=== PATIENT | female | born 1970 | race Caucasian/White ===

== ENCOUNTER 2016-05-23 12:57 | Inpatient (IN) | payer OTHER, MEDICAID, MEDICARE ==
[~2016-05-23] VITALS: Ht 149.9 cm; Wt 81.6 kg
[~2016-05-23 12:57] MED LIST: BACL10TA PO; ESTR1TAB12 PO; FLUC100T41 PO; FLUO-1 PO; OXCA300T2 PO; PROT40TA PO; SERO100T PO; SPIRCAP INH; SUCR1TAB PO; SYNT88TA PO; TIZA2TAB PO; TOPA200T4 PO
[2016-05-23 13:00] VITALS: BP 115/57; PULSE 99; RESP 15; TEMP 98.2; O2SAT 98
--- NOTE | 2016-05-23 13:51 | PD ---
HPI Chief Complaint: GI Complaint Time Seen by Provider: 13:25 Travel History International Travel<30 days: No Contact w/Intl Traveler<30days: No Traveled to known affect area: No History of Present Illness HPI 46-year-old female came to the emergency room with history of vomiting and diarrhea for past 3 days. Patient says that she vomited numerous times today and has lost count. She says when she is vomiting she is having diarrhea simultaneously. She has history of diabetes. As been unable to keep anything down. She also has abdominal pain in the epigastric area and thinks if her pancreatitis could be followed up. She has been feeling tired and weak. PFSH Past Medical History Narrative Medical List of her past medical, social and family history was reviewed from the nursing note. Arthritis: Yes (in knees bilateral & bilateral wrists) Asthma: Yes Anxiety: No (currently on meds) Depression: Yes (currently on meds) Cancer: No Cardiovascular Problems: Yes Diabetes: Yes Patient Takes Glucophage: No Diminished Hearing: No Gastrointestinal Disorders: Yes GERD: Yes Genitourinary: No Hiatal Hernia: No Implanted Vascular Access Dvce: Yes Musculoskeletal: Yes Neurologic: Yes Reproductive: No Respiratory: Yes (ASTHMA ) Migraines: Yes (sometimes) Pancreatitis: Yes Seizures: No Thyroid Disease: Yes Ulcer: Yes Influenza Vaccination: No ?: Not Past Surgical History Appendectomy: Yes Body Medical Devices: stimulator in lower back Cholecystectomy: Yes Hysterectomy: Yes Neurologic Surgery: Yes (neurostimulator implanted) Social History Alcohol Use: No Tobacco Use: No Substance Use: No Allergies-Medications (Allergen,Severity, Reaction): Coded Allergies: Sulfa (Verified Allergy, Severe, TONGUE SWELLING, 05/23/16) Comments List of her allergies reviewed from the nursing note. Reported Meds & Prescriptions Reported Meds & Active Scripts Active Reported Topamax (Topiramate) 200 Mg Tab 200 Mg PO BID Tramadol (Tramadol HCl) 50 Mg Tab 50 Mg PO TID PRN Metoclopramide (Metoclopramide HCl) 5 Mg Tab 5 Mg PO TIDAC Tizanidine (Tizanidine HCl) 4 Mg Cap 4 Mg PO DAILY PRN Seroquel (Quetiapine Fumarate) 100 Mg Tab 100 Mg PO HS Fluoxetine (Fluoxetine HCl) 40 Mg Cap 60 Cap PO DAILY Take 1 capsule (40mg) with 20mg capsule for a total dose of 60mg Fluoxetine (Fluoxetine HCl) 20 Mg Cap 60 Mg PO DAILY Take 1 capsule (20mg) with 40mg capsule for a total dose of 60mg Atorvastatin (Atorvastatin Calcium) 10 Mg Tab 10 Mg PO DAILY Lisinopril 10 Mg Tab 10 Mg PO DAILY [place] Carbonate 300 Mg Cap 300 Mg PO BID Fluticasone Nasal [place] 50 Mcg/Act Naspr 2 [place] EACH NARE DAILY Levothyroxine (Levothyroxine Sodium) 100 Mcg Tab 100 Mcg PO DAILY Oxybutynin ER 24 HR (Oxybutynin Chloride) 5 Mg Tab 5 Mg PO DAILY Narrative Medication List of her home medications reviewed from the nursing note. Review of Systems Except as stated in HPI: all other systems reviewed are Neg Physical Exam Narrative GENERAL: Awake, alert, obese, moderate distress SKIN: Warm and dry. HEAD: Atraumatic. Normocephalic. EYES: Pupils equal and round. No scleral icterus. No injection or drainage. ENT: No nasal bleeding or discharge. Dry mucous membrane. NECK: Trachea midline. No JVD. CARDIOVASCULAR: Regular rate and rhythm. No murmur appreciated. RESPIRATORY: No accessory muscle use. Clear to auscultation. Breath sounds equal bilaterally. GASTROINTESTINAL: Tender in the epigastric region, nondistended. Hepatic and splenic margins not palpable. MUSCULOSKELETAL: No obvious deformities. No clubbing. No cyanosis. No edema. NEUROLOGICAL: Awake and alert. No obvious cranial nerve deficits. Motor grossly within normal limits. Normal speech. PSYCHIATRIC: Appropriate mood and affect; insight and judgment normal. Data Data Last Documented VS Vital Signs Date Time Temp Pulse Resp B/P Pulse Ox O2 Delivery O2 Flow Rate FiO2 05/23/16 14:17 99 Room Air 05/23/16 13:00 98.2 99 15 115/57 Orders Complete Blood Count With Diff (05/23/16 13:58) Comprehensive Metabolic Panel (05/23/16 13:58) Lipase (05/23/16 13:58) Iv Access Insert/Monitor (05/23/16 13:58) Ecg Monitoring (05/23/16 13:58) Oximetry (05/23/16 13:58) Ondansetron Inj (Zofran Inj) (05/23/16 14:00) Sodium Chlor 0.9% 1000 Ml Inj (Ns 1000 M (05/23/16 13:58) Sodium Chloride 0.9% Flush (Ns Flush) (05/23/16 14:00) C Diff Toxin Pcr (05/23/16 14:08) Sodium Chlor 0.9% 1000 Ml Inj (Ns 1000 M (05/23/16 15:15) Sodium Chlor 0.9% 1000 Ml Inj (Ns 1000 M (05/23/16 15:15) Admit Order (Ed Use Only) (05/23/16 15:19) Labs Laboratory Tests Test 05/23/16 14:28 White Blood Count 15.9 TH/MM3 Red Blood Count 5.43 MIL/MM3 Hemoglobin 13.6 GM/DL Hematocrit 43.0 % Mean Corpuscular Volume 79.2 FL Mean Corpuscular Hemoglobin 25.0 PG Mean Corpuscular Hemoglobin 31.6 % Concent Red Cell Distribution Width 17.7 % Platelet Count 377 TH/MM3 Mean Platelet Volume 8.3 FL Neutrophils (%) (Auto) 84.3 % Lymphocytes (%) (Auto) 9.7 % Monocytes (%) (Auto) 4.5 % Eosinophils (%) (Auto) 1.3 % Basophils (%) (Auto) 0.2 % Neutrophils # (Auto) 13.4 TH/MM3 Lymphocytes # (Auto) 1.6 TH/MM3 Monocytes # (Auto) 0.7 TH/MM3 Eosinophils # (Auto) 0.2 TH/MM3 Basophils # (Auto) 0.0 TH/MM3 CBC Comment DIFF FINAL Differential Comment Sodium Level 133 MEQ/L Potassium Level 4.8 MEQ/L Chloride Level 103 MEQ/L Carbon Dioxide Level 18.2 MEQ/L Anion Gap 12 MEQ/L Blood Urea Nitrogen 25 MG/DL Creatinine 3.19 MG/DL Estimat Glomerular Filtration 16 ML/MIN Rate Random Glucose 109 MG/DL Calcium Level 9.5 MG/DL Total Bilirubin 0.5 MG/DL Aspartate Amino Transf 29 U/L (AST/SGOT) Alanine Aminotransferase 31 U/L (ALT/SGPT) Alkaline Phosphatase 113 U/L Total Protein 8.7 GM/DL Albumin 4.6 GM/DL Lipase 325 U/L Free Thyroxine 1.19 NG/DL Thyroid Stimulating Hormone 5.060 uIU/ML 3rd Gen [facility] Medical Decision Making Medical Screen Exam Complete: Yes Emergency Medical Condition: Yes Medical Record Reviewed: Yes Differential Diagnosis Acute gastroenteritis, C. difficile colitis, acute pancreatitis Narrative Course 2:08 PM awaiting for the blood test results to come back. Patient is getting IV fluid bolus and Zofran. 3:06 PM the test results are back and patient is in acute renal failure. Upon trending the lab test results from the past patient has been in normal renal function in the past. I've ordered a second liter of IV fluid bolus. Awaiting for the hospitalist to call back for admission. Critical Care Narrative Aggregate critical care time was 30 minutes. Time to perform other separately billable procedures was not included in the critical care time. My time did not include minutes spent treating any other patients simultaneously or on activities that did not directly contribute to the patient's treatment. The services I provided to this patient were to treat and/or prevent clinically significant deterioration that could result in: Acute renal failure, severe dehydration, fluid resuscitation I provided critical care services requiring my management, as noted below: Chart data review, documentation time, medication orders and management, vital sign assessments/reviewing monitor data, ordering and reviewing lab tests, ordering and interpreting/reviewing x-rays and diagnostic studies, care of the patient and discussion of the patient with the admitting physicians. Procedures EKG Prior to Arrival: No Diagnosis Primary Impression: Acute renal failure Qualified Code: N17.9 - Acute renal failure, unspecified acute renal failure type Additional Impressions: Dehydration Acute gastroenteritis Admitting Information Admitting Physician Requests: Tereza Ferro MD May 23, 2016 13:51
[2016-05-23] MEDS ORDERED: SODIUM CHLOR 0.9% 1000 ML INJ 1,000 ML IV SCH (13:58)
[2016-05-23] MEDS ORDERED: ONDANSETRON HCL 4 MG/2 ML VIAL IVP ONE (14:00)
[2016-05-23] MEDS ORDERED: SODIUM CHLORIDE 0.9% FLUSH 5 ML FLUSH IVF PRN (14:00)
[2016-05-23 14:17] VITALS: O2SAT 99
[2016-05-23] MEDS ORDERED: TRAM50TA PO (14:39)
[2016-05-23] MEDS ORDERED: METO5TAB PO (14:39)
[2016-05-23] MEDS ORDERED: EMPA1TAB13 PO (14:39)
[2016-05-23] MEDS ORDERED: SERO100T PO (14:39)
[2016-05-23] MEDS ORDERED: TOPI200 PO (14:39)
[2016-05-23] MEDS ORDERED: FLUO40CA PO (14:39)
[2016-05-23] MEDS ORDERED: LEVO100T5 PO (14:39)
[2016-05-23] MEDS ORDERED: ATOR10TA15 PO (14:39)
[2016-05-23] MEDS ORDERED: LISI10TA3 PO (14:39)
[2016-05-23] MEDS ORDERED: OXYB5TAB PO (14:39)
[2016-05-23] MEDS ORDERED: FLUO20CA4 PO (14:39)
[2016-05-23] MEDS ORDERED: FLUT50SP EACH NARE (14:39)
[2016-05-23] MEDS ORDERED: TIZA4CAP3 PO (14:39)
[2016-05-23] MEDS ORDERED: LITH300C2 PO (14:39)
[2016-05-23 14:41] LABS: AUTOMATED NEUTROPHIL # 13.4 TH/MM3 (1.8-7.7); BASOPHIL % 0.2 % (0.0-2.0); EOSINOPHIL # 0.2 TH/MM3 (0-0.4); EOSINOPHIL % 1.3 % (0.0-4.0); HEMO FLAGS DIFF FINAL; LYMPH % 9.7 % (9.0-44.0); LYMPHOCYTE # 1.6 TH/MM3 (1.0-4.8); MEAN CELL VOLUME 79.2 FL (80.0-100.0); MEAN CORPUSCULAR HGB CONC 31.6 % (32.0-36.0); MONO % 4.5 % (0.0-8.0); NEUT % 84.3 % (16.0-70.0); PLATELET COUNT 377 TH/MM3 (150-450); RED BLOOD COUNT 5.43 MIL/MM3 (4.00-5.30); RED CELL DISTRIBUTION WIDTH 17.7 % (11.6-17.2); WHITE BLOOD COUNT 15.9 TH/MM3 (4.0-11.0)
[2016-05-23 14:59] LABS: ALKALINE PHOSPHATASE 113 U/L (45-117); TOTAL BILIRUBIN ADULT 0.5 MG/DL (0.2-1.0)
[2016-05-23 15:03] LABS: ALT (GPT) 31 U/L (10-53); ANION GAP 12 MEQ/L (5-15); AST (GOT) 29 U/L (15-37); BICARBONATE 18.2 MEQ/L (21.0-32.0); BLOOD UREA NITROGEN 25 MG/DL (7-18); CHLORIDE 103 MEQ/L (98-107); GLOMERULAR FILTRATION RATE 16 ML/MIN (>89); POTASSIUM 4.8 MEQ/L (3.5-5.1); SODIUM (NA) 133 MEQ/L (136-145)
[2016-05-23] MEDS ORDERED: SODIUM CHLOR 0.9% 1000 ML INJ 1,000 ML IV ONE ×2 (15:15)
[2016-05-23] MEDS ORDERED: SODIUM CHLORIDE 0.9% FLUSH 5 ML FLUSH IV PRN (15:30)
[2016-05-23] MEDS ORDERED: ONDANSETRON HCL 4 MG/2 ML VIAL IV PRN (15:30)
[2016-05-23] MEDS ORDERED: DEXTROSE 50% IN WATER 50 ML VIAL(D50) IV PUSH PRN (15:45)
[2016-05-23] MEDS ORDERED: GLUCAGON 1 MG/ML VIAL OTHER PRN (15:45)
[2016-05-23] MEDS ORDERED: PILL SPLITTER OTHER PRN (15:45)
[2016-05-23] MEDS: INSULIN ASPART SUPPLEMENTAL SCALE SQ SCH ×2 (16:00→21:00)
[2016-05-23] MEDS: NS + KCL 20 MEQ INJ 1,000 ML IV SCH ×2 (16:16→22:15)
[2016-05-23] MEDS: HEPARIN SODIUM - SQ 10,000 UNITS/ML VIAL SQ SCH (16:16)
[2016-05-23 16:22] VITALS: BP 112/61; PULSE 88; RESP 16; O2SAT 99
[2016-05-23 17:12] LABS: BACTERIA, URINE OCC /hpf; BLOOD, URINE NEG (NEG); COMMENT (UR) CULT NOT INDICATED; CULTURE IF INDICATED CULT NOT INDICATED; GLUCOSE,URINE 300 mg/dL (NEG); KETONE, URINE NEG (NEG); MUCUS URINE FEW /lpf (OCC); NITRITE,URINE NEG (NEG); PH, URINE 5.5 (5.0-8.5); SQUAMOUS EPITHELIAL CELL URINE <1 /hpf (0-5); URINE COLOR COLORLESS (YELLW/STRAW)
[2016-05-23] MEDS: METOCLOPRAMIDE HCL 10 MG TAB PO SCH (17:12)
[2016-05-23 18:48] VITALS: BP 134/73; PULSE 88; RESP 18; O2SAT 99
[2016-05-23 19:16] VITALS: BP 117/66; PULSE 83; RESP 16; O2SAT 100
[2016-05-23 20:00] VITALS: BP 129/71; PULSE 82; RESP 16; TEMP 98.7; O2SAT 97
[2016-05-23] MEDS ORDERED: QUEtiapine FUMARATE 100 MG TAB PO SCH (21:00)
[2016-05-23] MEDS ORDERED: SODIUM CHLORIDE 0.9% FLUSH 5 ML FLUSH IV SCH (21:00)
--- NOTE | 2016-05-23 21:15 | HHI.HP ---
HPI Service [facility] Primary Care Physician Olivier Grimaldo, Admission Diagnosis acute renal failure, dehydration, metabolic acidosis Diagnoses: Chief Complaint: Vomiting with diarrhea Travel History International Travel<30 Days: No Contact w/Intl Traveler <30 Da: No Traveled to Known Affected Are: No History of Present Illness This 46-year-old female patient with past medical history which includes anxiety /depression, bipolar, diabetes mellitus, anxiety/depression, bipolar, GERD, asthma, pancreatitis and hypothyroidism. Patient reports over the past 2 months she has lost approximally 30 pounds. Patient believes this is due to the stress of moving as well as her is currently on a heart transplant waiting list and has an LVAD. Patient's is also currently being treated with IV antibiotics for MRSA infections. Patient reports for the past 2 weeks she has been feeling generally unwell with decreased appetite. Patient reports the past 3 days she has had vomiting as well as diarrhea. Patient reports that she has been having liquid bowel movements while she is vomiting. Patient reports she is vomiting continuously throughout the day more than 5 times per day. Patient denies coffee-ground emesis or bright red blood in emesis. Patient also denies black tarry stools or bright red blood per rectum. Patient reports the stool does have a stronger odor than it typically does. Patient denies abdominal pain but reports mild upper abdominal discomfort. Patient denies fevers chills shortness of breath or chest pain. Patient does report right lower extremity cramping for the past 1-2 days. Patient describes a cramping as intermittent in nature involving both upper and lower aspects of the leg not specifically the calf. There is no unilateral edema erythema or warmth on evaluation. Patient reports the leg cramping has resolved since receiving the IV fluids. Review of Systems Except as stated in HPI: all other systems reviewed are Neg Past Family Social History Past Medical History Anxiety/depression, bipolar, diabetes mellitus, anxiety/depression, bipolar, GERD, asthma, pancreatitis and hypothyroidism Past Surgical History Cholecystectomy, appendectomy, hysterectomy, right shoulder repair and nerve stimulator for back pain Reported Medications Topamax (Topiramate) 200 Mg Tab 200 Mg PO BID Tramadol (Tramadol HCl) 50 Mg Tab 50 Mg PO TID PRN Metoclopramide (Metoclopramide HCl) 5 Mg Tab 5 Mg PO TIDAC Tizanidine (Tizanidine HCl) 4 Mg Cap 4 Mg PO DAILY PRN Seroquel (Quetiapine Fumarate) 100 Mg Tab 100 Mg PO HS Fluoxetine (Fluoxetine HCl) 40 Mg Cap 60 Cap PO DAILY Take 1 capsule (40mg) with 20mg capsule for a total dose of 60mg Fluoxetine (Fluoxetine HCl) 20 Mg Cap 60 Mg PO DAILY Take 1 capsule (20mg) with 40mg capsule for a total dose of 60mg Atorvastatin (Atorvastatin Calcium) 10 Mg Tab 10 Mg PO DAILY Lisinopril 10 Mg Tab 10 Mg PO DAILY Synjardy (Empagliflozin-Metformin) 12.5 -1,000 Mg Tab 1 Tab PO BIDPC [place] Carbonate 300 Mg Cap 300 Mg PO BID Fluticasone Nasal [place] 50 Mcg/Act Naspr 2 [place] EACH NARE DAILY Levothyroxine (Levothyroxine Sodium) 100 Mcg Tab 100 Mcg PO DAILY Oxybutynin ER 24 HR (Oxybutynin Chloride) 5 Mg Tab 5 Mg PO DAILY Allergies: Coded Allergies: Sulfa (Verified Allergy, Severe, TONGUE SWELLING, 05/23/16) Active Ordered Medications Current Medications Medications (Trade) Dose Ordered Sig/Hanna Route Start Time Stop Time Status Last Admin (NS Flush) 2 ml UNSCH PRN IVF 05/23/16 14:00 (Lipitor) 10 mg DAILY PO 05/24/16 09:00 (PROzac) 60 mg DAILY PO 05/24/16 09:00 (Flonase David Spr) 2 spray DAILY EACH NARE 05/24/16 09:00 (Synthroid) 100 mcg DAILY@06 PO 05/24/16 06:00 (Prinivil) 10 mg DAILY PO 05/24/16 09:00 ([place] Carbonate) 300 mg BID PO 05/23/16 21:00 05/23/16 22:15 (Reglan) 5 mg TIDAC PO 05/23/16 17:00 05/23/16 17:12 (SEROquel) 100 mg HS PO 05/23/16 21:00 05/23/16 21:25 (Topamax) 200 mg BID PO 05/23/16 21:00 05/23/16 22:14 Tolterodine Tartrate 2 mg 2 mg DAILY PO 05/24/16 09:00 (NS + KCl 20 Meq Inj) 1,000 ml @ 125 mls/hr Q8H IV 05/23/16 15:30 05/23/16 22:15 (Zofran Inj) 4 mg Q6H PRN IV 05/23/16 15:30 (Heparin Inj) 5,000 units Q12H SQ 05/23/16 16:00 05/23/16 16:16 (D50w (Vial) Inj) 25 ml UNSCH PRN IV PUSH 05/23/16 15:45 (Glucagon Inj) 1 mg UNSCH PRN OTHER 05/23/16 15:45 (Pill Splitter) 1 ea UNSCH PRN OTHER 05/23/16 15:45 (Flu (Quadrivalent) Vaccine Inj) 0.5 ml ONCE ONCE IM 05/24/16 10:00 05/24/16 10:01 Family History Diabetes mellitus, heart disease, ovarian cancer and breast cancer Social History Patient lives at home with her Denies EtOH use or illicit drug use Quit tobacco use in 2012 Physical Exam Vital Signs Vital Signs Date Time Temp Pulse Resp B/P Pulse Ox O2 Delivery O2 Flow Rate FiO2 05/23/16 19:16 83 16 117/66 100 Room Air 05/23/16 18:48 88 18 134/73 99 05/23/16 16:22 88 16 112/61 99 Room Air 05/23/16 14:17 99 Room Air 05/23/16 13:00 98.2 99 15 115/57 98 Physical Exam GENERAL: This is a well-nourished, well-developed patient, in no apparent distress. SKIN: No rashes, ecchymoses or lesions. Cool and dry. HEAD: Atraumatic. Normocephalic. No temporal or scalp tenderness. EYES: Extraocular motions intact. No scleral icterus. No injection or drainage. CARDIOVASCULAR: Regular rate and rhythm without murmurs, gallops, or rubs. RESPIRATORY: Clear to auscultation. Breath sounds equal bilaterally. No wheezes , rales, or rhonchi. GASTROINTESTINAL: Abdomen soft, non-tender, nondistended. No guarding. MUSCULOSKELETAL: Extremities without clubbing, cyanosis, or edema. No joint tenderness, effusion, or edema noted. No calf tenderness. Negative Homans sign bilaterally. NEUROLOGICAL: Awake and alert. No focal deficits identified. Motor and sensory grossly within normal limits. Five out of 5 muscle strength in all muscle groups. Normal speech. Laboratory Laboratory Tests Test 05/23/16 05/23/16 14:28 16:36 White Blood Count 15.9 Red Blood Count 5.43 Hemoglobin 13.6 Hematocrit 43.0 Mean Corpuscular Volume 79.2 Mean Corpuscular Hemoglobin 25.0 Mean Corpuscular Hemoglobin 31.6 Concent Red Cell Distribution Width 17.7 Platelet Count 377 Mean Platelet Volume 8.3 Neutrophils (%) (Auto) 84.3 Lymphocytes (%) (Auto) 9.7 Monocytes (%) (Auto) 4.5 Eosinophils (%) (Auto) 1.3 Basophils (%) (Auto) 0.2 Neutrophils # (Auto) 13.4 Lymphocytes # (Auto) 1.6 Monocytes # (Auto) 0.7 Eosinophils # (Auto) 0.2 Basophils # (Auto) 0.0 CBC Comment DIFF FINAL Differential Comment Sodium Level 133 Potassium Level 4.8 Chloride Level 103 Carbon Dioxide Level 18.2 Anion Gap 12 Blood Urea Nitrogen 25 Creatinine 3.19 Estimat Glomerular Filtration 16 Rate Random Glucose 109 Calcium Level 9.5 Total Bilirubin 0.5 Aspartate Amino Transf 29 (AST/SGOT) Alanine Aminotransferase 31 (ALT/SGPT) Alkaline Phosphatase 113 Total Protein 8.7 Albumin 4.6 Lipase 325 Thyroid Stimulating Hormone 5.060 3rd Gen Urine Color COLORLESS Urine Turbidity CLEAR Urine pH 5.5 Urine Specific [place] 1.004 Urine Protein NEG Urine Glucose (UA) 300 Urine Ketones NEG Urine Occult Blood NEG Urine Nitrite NEG Urine Bilirubin NEG Urine Urobilinogen LESS THAN 2.0 Urine Leukocyte Esterase NEG Urine WBC 1 Urine Squamous Epithelial <1 Cells Urine Bacteria OCC Urine Mucus FEW Microscopic Urinalysis Comment CULT NOT INDICATED Result Diagram: 05/23/16 1428 05/23/16 1428 Assessment and Plan Assessment and Plan This 46-year-old female patient with past medical history which includes diabetes mellitus, anxiety/depression, bipolar, GERD, asthma, pancreatitis and hypothyroidism. Patient reports over the past 2 months she has lost approximally 30 pounds. Patient believes this is due to the stress of moving as well as her is currently on a heart transplant waiting list and has an LVAD. Patient's is also currently being treated with IV antibiotics for MRSA infections. Patient reports for the past 2 weeks she has been feeling generally unwell with decreased appetite. Patient reports the past 3 days she has had vomiting as well as diarrhea. Leukocytosis likely related to gastroenteritis Gastroenteritis, N/V/D Stool sample for culture and gram stain C diff pending Patient received total of 2 L of normal saline emergency department will normal saline with KCl at 125 mL per hour Zofran as needed for nausea/vomiting Weight loss with mild abdominal discomfort and gastroenteritis CT abdomen and pelvis with by mouth contrast only Acute kidney injury- BUN 25 creatinine 3.19, Estimated GFR 16 Likely dehydration Continue IV fluids Recheck in a.m. Right lower extremity leg cramps Likely related to dehydration and does not resolve if this does not resolve with IV fluids consider ultrasound bilateral lower extremities to rule out DVT Hypothyroidism TSH 5.06 T4 1 0.19 Continue Synthroid 100 mcg daily Diabetes mellitus sliding scale insulin coverage Anxiety/depression, bipolar Continue home medications Prozac, lithium, Seroquel DVT prophylaxis heparin subcutaneous Discussed plan of care with patient at bedside, RN Written by Ann Suazo, acting as scribe for Dr. Spear on 05/24/16 at 00: 50. The documentation accurately reflects the work performed [id number] by me on at 0050 Physician Certification 2 Midnight Certification Type: Admission for Inpatient Services Order for Inpatient Services The services are ordered in accordance with Medicare regulations or non- Medicare payer requirements, as applicable. In the case of services not specified as inpatient-only, they are appropriately provided as inpatient services in accordance with the 2-midnight benchmark. Estimated LOS (days): 3 days is the estimated time the patient will need to remain in the hospital, assuming treatment plan goals are met and no additional complications. Post-Hospital Plan: Home Ann Suazo May 23, 2016 21:15 Carey Spear MD May 24, 2016 06:51
[2016-05-23] MEDS ORDERED: DIATRIZOATE MEGLUM/DIATRIZOATE SOD 9 ML CUP PO SCH (21:20)
[2016-05-23] MEDS: TOPIRAMATE 200 MG TAB PO SCH (22:14)
[2016-05-23] MEDS: LITHIUM CARBONATE 300 MG CAP PO SCH (22:15)
[2016-05-24] VITALS: BP 109/61; PULSE 78; RESP 14; TEMP 98.6; O2SAT 100
--- NOTE | 2016-05-24 01:35 | RADRPT ---
EXAM DATE/TIME: 05/24/2016 01:08 [place] COMPARISON: CT ABDOMEN & PELVIS W/O CONTRAST, April 10, 2015, 19:20. INDICATIONS : Abdominal pain and weight loss. ORAL CONTRAST: Prescribed oral contrast ingested. RADIATION DOSE: 9.96 CTDIvol (mGy) MEDICAL HISTORY : Diabetes mellitus type 2. Pancreatitis. Asthma SURGICAL HISTORY : Appendectomy. Hysterectomy.Cholecystectomy.Neurostimulator ENCOUNTER: Initial ACUITY: 3 days PAIN SCALE: 5/10 LOCATION: abdomen TECHNIQUE: Volumetric scanning of the abdomen and pelvis was performed. Using automated exposure control and ad justment of the mA and/or kV according to patient size, radiation dose was kept as low as reasonably achievable to obtain optimal diagnostic quality images. FINDINGS: Examination of the lung bases demonstrates no abnormality. No pleural fluid is identified. No pulmona ry nodules are present. The liver and spleen are normal in size and no focal defects are identified. The gallbladder is absent. The pancreas demonstrates normal contour without evidence of mass or ducta l dilatation. The adrenal glands and kidneys appear normal bilaterally. No hydronephrosis or mass les ions are identified. Examination of the pelvis demonstrates no evidence of free fluid or pelvic mass. No abnormally enlarg ed inguinal or retroperitoneal lymph nodes are present. The bladder is unremarkable. CONCLUSION: 1. No evidence of acute abdominal or pelvic process. No masses are identified. Attila Moser MD on May 24, 2016 at 1:32 Board Certified Radiologist. This report was verified electronically.
[2016-05-24 03:19] LABS: C. DIFF EPI 027 PRESUMPTIVE NEGATIVE (NEGATIVE); C. DIFF TOXIN PCR NEGATIVE (NEGATIVE)
[2016-05-24 04:00] VITALS: BP 108/55; PULSE 68; RESP 14; TEMP 98.3; O2SAT 100
[2016-05-24] MEDS: HEPARIN SODIUM - SQ 10,000 UNITS/ML VIAL SQ SCH (05:19)
[2016-05-24] MEDS: INSULIN ASPART SUPPLEMENTAL SCALE SQ SCH ×2 (05:20→11:00)
[2016-05-24] MEDS ORDERED: LEVOTHYROXINE SODIUM 100 MCG TAB PO SCH (06:00)
[2016-05-24 07:25] VITALS: BP 95/54; PULSE 69; RESP 19; TEMP 98.1; O2SAT 98
[2016-05-24] MEDS: LITHIUM CARBONATE 300 MG CAP PO SCH (08:51)
[2016-05-24] MEDS: TOPIRAMATE 200 MG TAB PO SCH (08:52)
[2016-05-24] MEDS: METOCLOPRAMIDE HCL 10 MG TAB PO SCH (08:53)
[2016-05-24] MEDS ORDERED: TOLTERODINE TARTRATE 2 MG CAP LA PO SCH (09:00)
[2016-05-24] MEDS ORDERED: LISINOPRIL 10 MG TAB PO SCH (09:00)
[2016-05-24] MEDS ORDERED: FLUTICASONE PROPIONATE 50 MCG/ACT 16 GM NASAL SPRAY EACH NARE SCH (09:00)
[2016-05-24] MEDS ORDERED: FLUoxetine HCL 20 MG CAP PO SCH ×2 (09:00)
[2016-05-24] MEDS ORDERED: ATORVASTATIN 10 MG TAB PO SCH (09:00)
[2016-05-24] MEDS ORDERED: INFLUENZA VIRUS VACCINE (QUADRIVALENT) 0.5 ML SYR IM ONE (10:00)
[2016-05-24 10:09] LABS: AUTOMATED NEUTROPHIL # 3.3 TH/MM3 (1.8-7.7); BASOPHIL % 0.3 % (0.0-2.0); EOSINOPHIL # 0.4 TH/MM3 (0-0.4); EOSINOPHIL % 6.1 % (0.0-4.0); HEMATOCRIT 31.3 % (35.0-46.0); HEMO FLAGS DIFF FINAL; LYMPH % 33.2 % (9.0-44.0); LYMPHOCYTE # 2.1 TH/MM3 (1.0-4.8); MEAN CELL VOLUME 79.4 FL (80.0-100.0); MEAN CORPUSCULAR HEMOGLOBIN 25.1 PG (27.0-34.0); MEAN CORPUSCULAR HGB CONC 31.6 % (32.0-36.0); MONO % 7.8 % (0.0-8.0); NEUT % 52.6 % (16.0-70.0); PLATELET COUNT 216 TH/MM3 (150-450); RED BLOOD COUNT 3.94 MIL/MM3 (4.00-5.30); RED CELL DISTRIBUTION WIDTH 17.7 % (11.6-17.2); WHITE BLOOD COUNT 6.2 TH/MM3 (4.0-11.0)
[2016-05-24 10:41] LABS: BICARBONATE 20.3 MEQ/L (21.0-32.0); POTASSIUM 4.1 MEQ/L (3.5-5.1)
[2016-05-24 11:25] VITALS: BP 106/58; PULSE 68; RESP 19; TEMP 98.7; O2SAT 98
--- NOTE | 2016-05-24 12:19 | HHI.DCPOC ---
Discharge Care Plan Diagnosis: (1) Acute gastroenteritis (2) Dehydration (3) Acute renal failure Goals to Promote Your Health * To prevent worsening of your condition and complications * To maintain your health at the optimal level Directions to Meet Your Goals Take your medications as prescribed Follow your dietary instruction Follow activity as directed Keep your appointments as scheduled Take your immunizations and boosters as scheduled If your symptoms worsen call your PCP, if no PCP go to Urgent Care Center or Emergency Room Smoking is Dangerous to Your Health. Avoid second hand smoke Call the 24-hour hour crisis hotline for domestic abuse at Yodit Lundberg MD May 24, 2016 12:19
--- NOTE | 2016-05-24 12:20 | HHI.PR ---
Subjective Remarks Patient reports that she is feeling great today. No more nausea, vomiting, or diarrhea. She is hungry. She is tolerating her diet. In retrospect, she reports that she started the diabetic medication about a month ago and has not been feeling well for the past 3 weeks. She has lost weight. Blood sugar monitoring so far has been normal. She feels good to go home. Objective Vitals Vital Signs Date Time Temp Pulse Resp B/P Pulse Ox O2 Delivery O2 Flow Rate FiO2 05/24/16 07:25 98.1 69 19 95/54 98 05/24/16 04:00 98.3 68 14 108/55 100 05/24/16 00:00 98.6 78 14 109/61 100 05/23/16 20:00 98.7 82 16 129/71 97 05/23/16 19:16 83 16 117/66 100 Room Air 05/23/16 18:48 88 18 134/73 99 05/23/16 16:22 88 16 112/61 99 Room Air 05/23/16 14:17 99 Room Air 05/23/16 13:00 98.2 99 15 115/57 98 I/O 05/23/16 05/23/16 05/23/16 05/24/16 05/24/16 05/24/16 07:00 15:00 23:00 07:00 15:00 23:00 Intake Total 240 ml 931 ml Balance 240 ml 931 ml Intake Oral 240 ml 931 ml # Voids 1 2 # Bowel Movements 0 1 Result Diagram: 05/24/16 0844 05/24/16 0844 Imaging Last Impressions Abdomen/Pelvis CT 05/24/16 0000 Signed Impressions: Service Date/Time: Tuesday, May 24, 2016 01:08 - CONCLUSION: 1. No evidence of acute abdominal or pelvic process. No masses are identified. Attila Moser MD Objective Remarks GENERAL: This is a well-nourished, well-developed patient, in no apparent distress. CARDIOVASCULAR: Normal rate and regular rhythm without murmurs, gallops, or rubs. RESPIRATORY: Good respiratory efforts. Breath sounds equal and clear to auscultation bilaterally. GASTROINTESTINAL: Abdomen soft, non-tender, non-distended. Normal active bowel sounds MUSCULOSKELETAL: Extremities without cyanosis, or edema. NEURO: Alert & Oriented x4 to person, place, time, situation. Moves all ext x4 PSYCH: Appropriate mood and affect. A/P Problem List: (1) Acute gastroenteritis ICD Code: K52.9 Status: Acute (2) Dehydration ICD Code: E86.0 Status: Acute (3) Acute renal failure ICD Code: N17.9 Status: Acute Assessment and Plan 46-year-old female admitted with symptoms consistent with gastroenteritis, dehydration, acute renal failure area. Gastroenteritis symptoms completely resolved. The patient's renal failure markedly improved with IV fluid. It is noted she was started on Synjardy (Empagliflozin-Metformin) about a month ago. She has lost some weight since then and her blood sugar has been normal here. I advised the patient to hold this medication for now given the insult on her kidneys. She is to follow up outpatient with her primary care physician and discuss if and when to restart this medication. The rest of the patient's chronic home medications were continued. She is discharged home in good condition Follow-up with PCP within a week Diet: Diabetic Activity: Regular Meds: Per med rec. Problem Qualifiers (1) Acute renal failure: Qualified Code: N17.9 - Acute renal failure, unspecified acute renal failure type Yodit Lundberg MD May 24, 2016 12:20
== END 2016-05-24 16:43 | disposition home or self-care (01) | DRG 683 ==
LOC: NEPE 12:57 → NEDA 15:21 → N04A 19:46
PROVIDERS: ADMIT Family Medicine; ATTEND Family Medicine
DX: N17.9 Acute kidney failure, unspecified (principal); E87.2 Acidosis; K52.9 Noninfective gastroenteritis and colitis, unspecified; E86.0 Dehydration; F32.9 Major depressive disorder, single episode, unspecified; J45.909 Unspecified asthma, uncomplicated; K21.9 Gastro-esophageal reflux disease without esophagitis; E11.9 Type 2 diabetes mellitus without complications; M17.0 Bilateral primary osteoarthritis of knee; M19.032 Primary osteoarthritis, left wrist; M19.031 Primary osteoarthritis, right wrist; F41.9 Anxiety disorder, unspecified; E03.9 Hypothyroidism, unspecified; Z88.2 Allergy status to sulfonamides; Z87.891 Personal history of nicotine dependence; Z83.3 Family history of diabetes mellitus; Z82.49 Family history of ischemic heart disease and other diseases of the circulatory system; Z80.41 Family history of malignant neoplasm of ovary; Z80.3 Family history of malignant neoplasm of breast
CPT/HCPCS: 74176; 80048; 80053; 81001; 82948; 83690; 84439; 84443; 85025; 87015; 87116; 87206; 87493; 87506; 90686; 96361; 96374; J1644; J2405; J3480; J7030; Q2038; Q9963